=== PATIENT | female | born 1950 | race Caucasian/White ===

== ENCOUNTER → 2017-12-29 | Outpatient (CLI) | payer MEDICARE ==
[2017-12-29 11:20] LABS: INTERNATIONAL NORMALIZED RATIO 2.2 RATIO
== END ==
LOC: PLAB 10:35
DX: I74.10 Embolism and thrombosis of unspecified parts of aorta (principal)
CPT/HCPCS: 36415; 85610

== ENCOUNTER → 2018-01-04 | Outpatient (CLI) | payer MEDICARE ==
[2018-01-04 12:43] LABS: INTERNATIONAL NORMALIZED RATIO 4.1 RATIO; PROTHROMBIN TIME - PATIENT 40.8 SEC (9.8-11.6)
== END ==
LOC: PLAB 10:52
DX: I74.10 Embolism and thrombosis of unspecified parts of aorta (principal)
CPT/HCPCS: 36415; 85610

== ENCOUNTER → 2018-01-11 | Outpatient (CLI) | payer MEDICARE ==
[2018-01-11 12:27] LABS: INTERNATIONAL NORMALIZED RATIO 3.7 RATIO; PROTHROMBIN TIME - PATIENT 37.1 SEC (9.8-11.6)
== END ==
LOC: PLAB 10:54
DX: I74.10 Embolism and thrombosis of unspecified parts of aorta (principal)
CPT/HCPCS: 36415; 85610

== ENCOUNTER → 2018-01-19 | Outpatient (CLI) | payer MEDICARE ==
[2018-01-19 10:04] LABS: INTERNATIONAL NORMALIZED RATIO 2.8 RATIO; PROTHROMBIN TIME - PATIENT 27.8 SEC (9.8-11.6)
== END ==
LOC: PLAB 09:05
DX: I74.10 Embolism and thrombosis of unspecified parts of aorta (principal)
CPT/HCPCS: 36415; 85610